=== PATIENT | female | born 1975 | race Caucasian/White ===

== ENCOUNTER → 2018-01-20 | Day surgery (SDC) | payer BC ==
[2018-01-19 10:13] VITALS: BMI 31.2
[~2018-01-20] MED LIST: Bupivacaine/Epinephrine 0.25% 30 ML VIAL ONE; Clindamycin/D5W 600 mg/50 ml Premix Bag ONE; Dexamethasone 20 MG/5 ML VIAL ONE; Fentanyl 100 MCG/2 ML VIAL IV PRN; Fentanyl 100 MCG/2 ML VIAL ONE; Glycopyrrolate 0.2 MG/ML 5 ML SYRINGE ONE; HYDROcodone/Acetaminophen 5/325 mg Tablet PO PRN; Ketorolac Tromethamine 30 MG/ML VIAL ONE; Lidocaine 1% PF 5 ML VIAL ONE; Metoclopramide HCl 10 MG/2 ML VIAL ONE; Midazolam HCl 2 mg/2 ml Vial ONE; Ondansetron PF 4 MG/2 ML Vial IVP PRN; Ondansetron PF 4 MG/2 ML Vial ONE; PHENYLEPHRINE-NS 100 MCG/ML 10 ML SYRINGE ONE; PROPOFOL 200 MG/20 ML VIAL ONE; Promethazine HCl 25 MG/ML VIAL IM PRN; Ropivacaine 0.2% 550 ML 550 ML NERVE BLCK SCH; Ropivacaine 0.2% HCl/PF (40 MG/20 ML VIAL) ONE; Ropivacaine 0.5% HCl/PF (150 MG/30 ML VIAL) ONE; Zolpidem Tartrate 5 MG TAB PO PRN; diphenhydrAMINE 50 MG/ML VIAL ONE; traMADol HCl 50 MG TAB PO PRN
--- NOTE | 2018-01-25 17:34 | OP ---
DATE OF PROCEDURE: 01/20/2018 PREOPERATIVE DIAGNOSES: Left shoulder partial cuff tear, biceps tendon tear, and instability secondary to traumatic fall. POSTOPERATIVE DIAGNOSES: Left shoulder partial cuff tear, biceps tendon tear, and instability secondary to traumatic fall. PROCEDURES PERFORMED: 1. Left shoulder arthroscopy with debridement of labral tear as well as biceps tendon tear as well as partial undersurface rotator cuff tear. 2. Arthroscopic subacromial decompression. 3. Open biceps tenodesis. ESTIMATED BLOOD LOSS: Less than 30 mL. COMPLICATIONS: None. ANESTHESIA: General anesthetic as well as block. IMPLANTS: We used a 7 x 23 mm BioComposite Bio-Tenodesis screw. DISPOSITION: She did go to recovery room in sterile condition. INDICATIONS FOR PROCEDURE: This is a 42-year-old female who fell off a horse a couple of months prior to this surgical date and came in complaining of chronic left shoulder pain. We are unable to make her any better nonoperatively and this time she opted for surgery. DESCRIPTION OF PROCEDURE: After all appropriate consent forms were explained and signed, she was taken back to the operating room at this time and given an anesthetic. Once the level of anesthesia was appropriate, she was rolled on to the right lateral decubitus with all bony prominences were well padded. The axillary roll was placed underneath the right axilla. A bobby bag was inflated to hold her in this position. The shoulder was then taken through full range of motion and then suspended with 10 pounds in standard arthroscopic fashion. The left shoulder and upper extremity were then prepped and draped in standard surgical fashion. Bony anatomical landmarks were drawn out and the subacromial space was infiltrated with Marcaine with epinephrine. Posterior portal was established. Scope was placed into the shoulder joint. Anterior working portal was made using a needle localization technique. Diagnostic arthroscopy commenced in the glenohumeral joint. The articular surfaces of the humeral head and glenoid were in excellent condition. The patient had a partial undersurface tear of the supraspinatus tendon. She also demonstrated an intraarticular tear of the biceps tendon as well as the superior labrum. We then inserted the shaver, debrided all the aforementioned tissues, packed the stable space. Remaining labrum showed that the posterior inferior labrum had a small degenerative type tear. This was also debrided. Otherwise, remaining posterior labrum was in good condition. No loose bodies were noted in the axillary pouch. Again, the articular surfaces were in good condition. We then went ahead and evaluated the cuff and even though she did have this partial thickness tear, there still appeared to be, from this viewpoint, significant rotator cuff tissue that was normal on appearance superior to this. At this time, a needle was used to place the stitch through the biceps tendon and the biceps tendon was cut off at the superior labral insertion. At this point, we repositioned the scope in the subacromial space. Bursa was removed off the underlying cuff and there was a small area in the leading edge of the supraspinatus where the bursa was frayed, but the tissue overall appeared to be healthy and intact. Again, small decompression was performed using the SERFAS and the shaver. At this time, no real cuff repair was deemed necessary. Therefore, the scope was removed. Shoulder was drained. We then made an incision with a 15 blade down to the skin. Bovie was used to coagulate any brisk venous bleeding. Deltoid fascia was incised sharply. Finger dissection was used to split the deltoid fibers in line to get down to the underlying transverse humeral ligament and the biceps tendon. This was opened up. Biceps tendon was pulled down on to the wound. It was then sutured. The intra-articular portion was removed. We then placed our guidewire, drill and placed and fixated the biceps tendon in standard fashion using a 7 x 23 BioComposite Bio-Tenodesis screw. Once this was done, we thoroughly irrigated and dried the wound. We allowed the deltoid to fall upon itself. We then used a running Vicryl to close our deltoid fascia, followed by 2-0 Vicryl and sutures to close the skin. All portal was closed with simple nylon stitch as well. At this time, the patient was awakened and taken to recovery room in stable condition. All counts were correct at the end of case and she received preoperative IV antibiotics. Job ID: [id number]
== END ==
LOC: SDC 06:44
PROVIDERS: ATTEND Orthopaedic Surgery
PROC: 0LS20ZZ Reposition Left Shoulder Tendon, Open Approach (ICD-10-PCS; principal; 2018-01-20)
PROC: 0RBK4ZZ Excision of Left Shoulder Joint, Percutaneous Endoscopic Approach (ICD-10-PCS; principal; 2018-01-20)
DX: S46.012A Strain of muscle(s) and tendon(s) of the rotator cuff of left shoulder, initial encounter (principal); S46.112A Strain of muscle, fascia and tendon of long head of biceps, left arm, initial encounter; M25.312 Other instability, left shoulder; S43.492A Other sprain of left shoulder joint, initial encounter; G25.89 Other specified extrapyramidal and movement disorders; Z88.0 Allergy status to penicillin; V80.010A Animal-rider injured by fall from or being thrown from horse in noncollision accident, initial encounter
CPT/HCPCS: A4306; C1713; J1100; J1200; J1885; J2001; J2250; J2405; J2704; J2765; J2795; J3010; J3490

== ENCOUNTER 2018-04-07 20:52 | Inpatient (IN) | payer BC ==
[2018-04-07 21:15] LABS: #Basophils 0.1 thou/uL (0.0-0.2); #Lymphocytes 3.2 thou/uL (1.20-3.40); #Neutrophils 13.6 thou/uL (1.40-6.50); %Basophils 0.4 % (0.0-1.0); %Eosinophils 0.3 % (0.0-10.0); %Lymphocytes 17.8 % (21.0-51.0); %Monocytes 5.4 % (0.0-10.0); %Neutrophils 76.1 % (42.0-75.0); Hemoglobin 14.2 g/dL (12.0-16.0); Mean Corpuscular HGB CONC 33.5 g/dL (32.0-36.0); Mean Corpuscular Hemoglobin 30.1 pg (27.0-31.0); Mean Corpuscular Volume 89.9 fL (78.0-98.0); Mean Platelet Volume 6.7 fL (7.4-10.4); Platelet Count 354 thou/uL (130-400); White Blood Cell (WBC) Count 17.9 thou/uL (4.8-10.8)
--- NOTE | 2018-04-07 21:16 | RAD ---
AP VIEW CHEST: 04/07/18 HISTORY: Ejection from a horse. Struck metal pole with head. Loss of consciousness. AP view chest demonstrates the lungs to be well aerated. No evidence of active intrathoracic disease seen. No evidence of effusions, pneumonia or pneumothorax seen. IMPRESSION: Unremarkable AP view chest. POS: [facility]
--- NOTE | 2018-04-07 21:17 | RAD ---
AP VIEW PELVIS: 04/07/18 HISTORY: Ejection from horse. Trauma. Pain. AP view pelvis obtained. The pelvis is unremarkable. No evidence of pelvic fractures, subluxations or bony lesions seen. IMPRESSION: Unremarkable AP view pelvis. POS: [facility]
--- NOTE | 2018-04-07 21:19 | RAD ---
TWO VIEWS RIGHT FEMUR: 04/07/18 HISTORY: Ejection from horse with right thigh pain. AP and lateral views right femur obtained. Two views right femur demonstrate no evidence of right fem oral fractures, subluxations or bony lesions. IMPRESSION: Normal to views right femur. POS: [facility]
[2018-04-07 21:21] LABS: BHCG - Serum Negative (NEGATIVE); Pregs Control Background? CLEAR/WHITE (CLR/WHITE); Pregs Control Bar Appear? YES (CONTROL BAR)
[2018-04-07] MEDS ORDERED: CEFAZOLIN 1 GM VIAL ONE (21:26)
[2018-04-07] MEDS ORDERED: Fentanyl 100 MCG/2 ML VIAL ONE (21:26)
[2018-04-07] MEDS ORDERED: Adacel (T-DAP) 0.5 ML SYRINGE ONE (21:26)
[2018-04-07 21:29] LABS: ALT (SGPT) 14 U/L (8-55); AST (SGOT) 23 U/L (5-34); Albumin 4.1 g/dL (3.5-5.0); Alkaline Phosphatase 76 U/L (40-150); Anion Gap 16 mmol/L (10-20); BUN (Urea Nitrogen) 8 mg/dL (7.0-18.7); Bilirubin, Total 0.7 mg/dL (0.2-1.2); Calc. Creatinine Clearance 0 mL/min (70-130); Calcium 9.5 mg/dL (7.8-10.44); Carbon Dioxide 17 mmol/L (22-29); Chloride 107 mmol/L (98-107); Estimated GFR-MDRD 73; Globulin 3.1 g/dL (2.4-3.5); Glucose 142 mg/dL (70-105); Lipase 9 U/L (8-78); Potassium 3.3 mmol/L (3.5-5.1); Protein, Total 7.2 g/dL (6.0-8.3); Sodium 137 mmol/L (136-145)
--- NOTE | 2018-04-07 21:35 | CT ---
CT BRAIN 04/07/18 HISTORY: Trauma, struck head on metal pole. Noncontrast enhanced CT images of the brain obtained. Brain and bone windows obtained. There is an ac gonzales fracture involving the right orbital roof as well as the right lateral orbital wall and right zyg omatic arch. The fracture extends inferiorly to involve the anterior and posterolateral wall of the r ight maxillary sinus. Acute blood is seen in the right maxillary sinus as well. The brain itself demonstrates no evidence of significant hemorrhage. Although it is not definitively visualized at this time, I am concerned about trauma and edema developing in the right frontal lobe, especially on the inferior aspect adjacent to the fractured orbital roof. No significant evidence of acute midline shift or hemorrhage seen at this time. IMPRESSION: Extensive right orbital roof, lateral orbital wall, and right maxillary sinus fractures. POS: [facility]
[2018-04-07] MEDS ORDERED: Metoclopramide HCl 10 MG/2 ML VIAL ONE (21:39)
--- NOTE | 2018-04-07 21:39 | CT ---
CT FACIAL BONES: 04/07/18 HISTORY: Trauma, hit head on metal pole while being thrown from a horse. Axial images are obtained with coronal and sagittal reconstructions. CT images demonstrate areas of cortical disruption and displacement involving the right orbital roof involving the right frontal bone. The fracture extends posteriorly into the medial posterior aspect o f the orbital wall on the right. There is a definite acute fracture also involving the right lateral orbital wall. As mentioned on the CT brain, there is also a fracture involving the right anterior and posterolateral wall of the right maxillary sinus. There is also areas of lucency in the right mid an d posterior aspect of the zygomatic arch. A small amount of gas is seen in the right anterior aspect of the subdural or subarachnoid space seen on axial image #59 just posterior to the right posterior portion of the frontal sinus. The mandible is unremarkable. IMPRESSION: Extensive facial fracture as described above. POS: [facility]
--- NOTE | 2018-04-07 21:43 | CT ---
CT CERVICAL SPINE 04/07/18 HISTORY: Level II trauma. Fall from horse. CT cervical spine. Axial images are obtained with coronal and sagittal reconstructions. CT images cervical spine demonstrate no evidence of acute cervical spine fractures. Cervical spinal a lignment is within normal limits. Vertebral bodies and facets are unremarkable. The central canal is patent. No significant evidence of neural foraminal narrowing seen. IMPRESSION: Unremarkable CT cervical spine. POS: [facility]
[2018-04-07] MEDS ORDERED: Bupivacaine 0.5% 10 ML VIAL ONE (22:10)
[2018-04-07] MEDS ORDERED: Potassium Chloride 40 MEQ in Sodium Chloride 0.9% 500 ML IVPB ONE (23:00)
[2018-04-08] MEDS ORDERED: Dextrose 50% Abboject 50 ML SYRINGE SLOW IVP PRN (00:07)
[2018-04-08] MEDS ORDERED: Ondansetron PF 4 MG/2 ML Vial IVP PRN (00:07)
[2018-04-08] MEDS ORDERED: Ondansetron ODT 4 MG TAB PO PRN (00:07)
[2018-04-08] MEDS ORDERED: Dextrose 5% in Water 1,000 ML IV PRN (00:07)
[2018-04-08] MEDS ORDERED: Morphine 4 MG/ML VIAL SLOW IVP PRN (00:07)
[2018-04-08] MEDS ORDERED: Promethazine HCl 25 MG/ML VIAL IM/IV PRN (00:07)
[2018-04-08] MEDS: Acetaminophen 1,000 MG in Premix Bag 1 BAG IVPB SCH ×3 (00:12→13:14)
[2018-04-08] MEDS: Lactated Ringer's 1,000 ML IV SCH ×3 (00:22→16:52)
--- NOTE | 2018-04-08 00:39 | HP ---
Level 2 trauma activation. SUBJECTIVE: A 42-year-old woman ejected from horse at high rate of speed, hitting a metal pipe, and striking her head. No loss of consciousness according to the patient and bystanders. The patient with immediate nausea and vomiting. The patient was evaluated in the emergency room and was found to have right maxillary facial fractures and laceration to the right forehead, eyelid. Wound was closed with sutures in the ER. The patient was given tetanus and Ancef 1 g IV. The patient also given Zofran 8 mg by EMS for nausea, vomiting, and Reglan 10 mg in the emergency room. The patient also with right pneumocephalus. Neuro and oral maxillary facial surgery have both been consulted. PAST MEDICAL HISTORY: Denies any medical history. PAST SURGICAL HISTORY: , right shoulder surgery, and tubal ligation. SOCIAL HISTORY: Denies any alcohol use. Denies drug use. Denies smoking history. ALLERGIES: PENICILLIN. OBJECTIVE: VITAL SIGNS: Blood pressure 127/77, pulse 71, respirations 16, SpO2 100% on room air, and temperature 98.6. GENERAL: The patient in moderate distress. Reports pain 6/10. The patient in the process of getting right eyebrow laceration repair. HEENT: Pupils are equal and reactive bilateral, 3 mm, the patient with 3 cm laceration to the right eyebrow, sutures in place, contusion, ecchymosis, right eye and right side of nose. Normal dentition. Trachea midline. No cervical tenderness. C-spine cleared in the emergency room. RESPIRATORY: No respiratory distress. Bilateral breath sounds clear. No wheezing, rales, or rhonchi. CARDIOVASCULAR: Regular rate and rhythm. No murmurs. ABDOMEN: Soft, nontender, and nondistended. Active bowel sounds. BACK: Normal inspection. No tenderness. EXTREMITIES: Pelvis is stable. Right lateral thigh with a large abrasion, right forearm abrasion, and right ankle abrasion. NEURO: The patient is alert, oriented to person, place, time, and event, GCS is 15. Speech is normal. There are no focal motor deficits or sensory deficits. LABORATORY DATA: WBC 17.9, RBC 4.7, her hemoglobin 14.2, hematocrit 42.2, and platelets 353. Sodium 137, potassium 3.3, chloride 107, carbon dioxide 17, anion gap 16, BUN 8, creatinine 0.86, estimated GFR 73, glucose 142, calcium 9.5, total bilirubin 0.7, AST 23, ALT 14, alkaline phos 76, and lipase 9. DIAGNOSTICS STUDIES: 1. Cervical spine CT, unremarkable. 2. Brain CT, extensive right orbital roof, lateral orbital wall, and right maxillary sinus fractures. 3. No significant evidence of acute midline shift or hemorrhage seen at this time. Acute blood seen in the right maxillary sinus. 4. Pelvis x-ray, unremarkable. Chest x-ray, unremarkable. 5. Femur x-ray normal view right femur. 6. Facial bone CT, extensive facial fracture, areas of cortical disruption and displacement involving the right orbital roof, involving the right frontal bone. The fracture extends posteriorly into the medial posterior aspect of the orbital wall on the right. Also, a definite acute fracture involving the right lateral orbital wall. Also, a fracture involving the right anterior and posterolateral wall of the right maxillary sinus. There are also areas of lucency in the right mid and posterior aspect of the zygomatic arch. There is a small amount of gas seen in the right anterior aspect of the subdural or subarachnoid space posterior to the right portion of the frontal sinus. The mandible is unremarkable. IMPRESSION: 1. Multiple facial fractures. 2. Pneumocephalus. 3. Right maxillary sinus fracture. 4. Laceration to right eyebrow. 5. Acute traumatic pain. 6. Concussion. 7. Hypokalemia. PLAN: We will admit patient to the [facility]. q.2 hour neuro checks. Neurology and OMFS had been consulted. We will get a repeat CT in the morning. We will manage patient's pain. Keep patient n.p.o. until OMFS determines if the patient needs surgical intervention. Replace the patient's electrolytes. The patient will be discussed after this dictation with the attending trauma surgeon. Job ID: [id number] [facility]
--- NOTE | 2018-04-08 01:38 | CON ---
DATE OF CONSULTATION: 04/07/2018 This is a 30-minute initial patient evaluation, of which greater than 50% of the exam was spent counseling and coordinating the patient's care. Remainder of the exam was spent in review of the patient's medical records and review of appropriate imaging studies. CHIEF COMPLAINT: Status post fall from a horse with right frontal skull fracture and pneumocephalus. HISTORY OF PRESENT ILLNESS: Ms. Wadsworth is a pleasant 42-year-old female who was riding her horse earlier today. Apparently, she was attempting to began a barrel racing with a horse when it turned sideways throwing the right side of her face into a metal gate. She has headache, but no neck pain. She had significant right eye pain as this took the brunt of the injury. She does also have some abrasions to the right thigh and has some pain there, but otherwise has no back pain. She has been nauseous and vomiting due to pain. Otherwise, she is healthy and is not on blood thinners. Review of the patient's head CT notes right frontal region skull fracture with slight amount of pneumocephalus, but no indication of intracranial hemorrhage. She has significant fracture to the right orbit and sinuses from her facial trauma. Her cervical spine CT is negative for fracture. The family was updated at bedside. PHYSICAL EXAMINATION: The patient appears to be awake, but prefers to keep her eyes closed secondary to pain and again injury. There is significant ecchymosis and obvious bloody drainage from the right eye and is extremely swollen. She, however, is able to open the left eye, pupil is round and reactive to light. GCS is 15. She has good strength in all the extremities, though she very slowly moved the right leg secondary to the right lateral thigh abrasions. She is obviously nauseous throughout the exam and states she is going to throw up several times, although I did not witness this. IMPRESSION/DIAGNOSES: 1. Status post fall from horse with facial trauma including right orbital fracture. 2. Small right frontal skull fracture with slight amount of pneumocephalus. PLAN: I have discussed the patient's case and imaging with Dr. Oropeza. At this time, the patient will be admitted to the Trauma Service and we will defer to OMFS the regarding repair of the patient's facial fractures and orbital fracture. In regard to the patient's head CT with skull fracture with pneumocephalus, we planned to repeat noncontrast head CT in the morning. The patient will be admitted to the ICU with q.2 hour neuro-checks. Apparently, the patient has a component of concussion and we will control her pain as well as nausea and vomiting. In regard to Neurosurgery, she does not require surgery at this time and again, hopefully we can just simply monitor the skull fracture. Please call with any changes in the patient's neurologic status. Job ID: [id number]
[2018-04-08 02:12] VITALS: BMI 31.7
[2018-04-08] MEDS: Morphine 4 MG/ML VIAL SLOW IVP PRN ×2 (03:46→07:28)
[2018-04-08 06:00] LABS: #Lymphocytes 1.4 thou/uL (1.20-3.40); #Monocytes 0.9 thou/uL (0.11-0.59); #Neutrophils 12.6 thou/uL (1.40-6.50); %Eosinophils 0.1 % (0.0-10.0); %Lymphocytes 9.1 % (21.0-51.0); %Monocytes 5.9 % (0.0-10.0); %Neutrophils 84.9 % (42.0-75.0); Hemoglobin 12.4 g/dL (12.0-16.0); Mean Corpuscular HGB CONC 33.6 g/dL (32.0-36.0); Mean Corpuscular Hemoglobin 30.5 pg (27.0-31.0); Mean Corpuscular Volume 90.8 fL (78.0-98.0); Mean Platelet Volume 6.9 fL (7.4-10.4); Platelet Count 302 thou/uL (130-400); RBC Distribution Width 12.1 % (11.5-14.5); Red Blood Cell (RBC) Count 4.06 mill/uL (4.20-5.40); White Blood Cell (WBC) Count 14.8 thou/uL (4.8-10.8)
[2018-04-08 06:17] LABS: ALT (SGPT) 12 U/L (8-55); AST (SGOT) 18 U/L (5-34); Albumin 3.6 g/dL (3.5-5.0); Alkaline Phosphatase 68 U/L (40-150); Anion Gap 12 mmol/L (10-20); BUN (Urea Nitrogen) 8 mg/dL (7.0-18.7); Bilirubin, Total 0.9 mg/dL (0.2-1.2); Calc. Creatinine Clearance 115 mL/min (70-130); Calcium 8.9 mg/dL (7.8-10.44); Carbon Dioxide 19 mmol/L (22-29); Chloride 109 mmol/L (98-107); Estimated GFR-MDRD 85; Globulin 2.8 g/dL (2.4-3.5); Glucose 122 mg/dL (70-105); Magnesium 1.7 mg/dL (1.6-2.6); Phosphorus 3.5 mg/dL (2.3-4.7); Potassium 4.4 mmol/L (3.5-5.1); Protein, Total 6.4 g/dL (6.0-8.3); Sodium 136 mmol/L (136-145)
[2018-04-08] MEDS ORDERED: Famotidine/PF 20 mg/2ml Vial SLOW IVP SCH (09:00)
--- NOTE | 2018-04-08 09:09 | CT ---
PRELIMINARY REPORT/[facility]/EMERGENTY AFTER-HOURS PROCEDURE CT Head Without Contrast EXAM DATE/TIME: 04/08/2018 4:12 AM CLINICAL HISTORY: 42 years old, female; Condition or disease; Other: Skull fracture; Patient HX: Follow up, pneumocepha dylan, right frontal skull fracture TECHNIQUE: Axial computed tomography images of the head/brain without contrast. COMPARISON: CT Brain WO Con 04/07/2018 9:13 PM FINDINGS: Brain: Redemonstration of few tiny intracranial air pockets. Otherwise no evidence of hemorrhage, mas s effect, or edema. Ventricles: No acute findings. No ventriculomegaly. Bones/joints: Redemonstration of multiple right frontal, orbital and maxilla zygomatic facial fractur es. Sinuses: Right maxillary sinus partial opacification/hematoma. Mastoid air cells: No acute findings. No mastoid effusion. Soft tissues: Marked right frontal, periorbital and facial soft tissue swelling and tiny air pockets. IMPRESSION: Redemonstration of multiple fractures and tiny pneumocephalus. Otherwise no acute intracranial abnorm ality. Thank you for allowing us to participate in the care of your patient. Dictated and Authenticated by: Tim Em MD 04/08/2018 5:31 AM Central Time ([place] & [place]) FINAL REPORT EMERGENCY AFTER HOURS CT OF THE BRAIN WITHOUT CONTRAST: Date: 04/08/18 COMPARISON: 04/07/18. FINDINGS/IMPRESSION: I agree with the findings and impression given in the preliminary report per [facility] physician. There is a tiny amount of a pneumocephalus and extensive right facial fractures. No change has occurred cady red to the prior CT of the brain. POS: [facility]
[2018-04-08] MEDS ORDERED: Chloraseptic Spray 180 ml Bottle PO PRN (10:33)
--- NOTE | 2018-04-08 10:33 | PRG ---
DATE OF SERVICE: 04/08/2018 SUBJECTIVE: Ms. Wadsworth is a 42-year-old woman seen by my team. She was thrown off a horse, who sustained right frontal and skull base fractures. She has had no issues or CSF leak. She has trace pneumocephalus both on her initial and repeat head CT with no blossoming of hemorrhagic products. From a neurosurgical standpoint, I would be fine with dismissal. We will arrange followup in my clinic as far as Oral Maxillofacial Surgery and Ophthalmology evaluation. I would defer to those teams. Job ID: [id number]
[2018-04-08] MEDS ORDERED: Dexamethasone 4 MG TAB PO SCH (10:45)
[2018-04-08] MEDS: Acetaminophen 500 MG TAB PO SCH ×3 (14:38→23:27)
[2018-04-08] MEDS: Ibuprofen 800 MG TAB PO SCH ×2 (14:38→16:49)
[2018-04-08] MEDS: traMADol HCl 50 MG TAB PO SCH ×3 (14:38→23:28)
--- NOTE | 2018-04-08 16:28 | PRG ---
DATE OF SERVICE: 04/08/2018 SUBJECTIVE: This is a 42-year-old woman, who was ejected from a horse at high rate of speed, hitting her head on a metal pipe. No loss of consciousness according to the patient and bystanders. The patient was evaluated to have multiple facial fractures and orbital fractures. Post injury day #2. The patient is awake, alert, in no distress. GCS 15. The patient reports no overnight events and pain is well controlled. Reports a mild sore throat. The patient had no neurologic changes overnight. OBJECTIVE: VITAL SIGNS: Temperature 98.8, blood pressure 111/71, pulse 84, respirations 16, and 94% on room air. GENERAL: The patient is awake, alert, and in no distress. Family at bedside. HEENT: Right eye with ecchymosis and severe swelling and swelling to right side of face. Sutures to right eyebrow in place with bandage. NECK: Trachea midline. RESPIRATORY: No respiratory distress. Bilateral breath sounds clear. CARDIOVASCULAR: Regular rate and rhythm. ABDOMEN: Soft, nontender, and nondistended. EXTREMITIES: The patient moves all extremities. No pedal edema. The patient with abrasion to right lateral thigh. NEUROLOGIC: The patient is awake, alert. GCS 15. No focal motor deficits or sensory deficits. LABORATORY DATA: WBC 14.8, RBC 4.06, hemoglobin 12.4, hematocrit 36.9, and platelets 302. Sodium 136, potassium 4.4, chloride 109, CO2 of 19, creatinine 0.75, estimated GFR 85, BUN 8, glucose 122, calcium 8.9, and phosphorus 3.5. Brain CT, tiny amount of pneumocephalus and extensive right facial fractures. No change has occurred compared to the prior CT of the brain. ASSESSMENT: 1. Multiple facial fractures. 2. Right maxillary sinus fracture. 3. Pneumocephalus. 4. Right orbital roof fracture, lateral orbital wall fracture. 5. Laceration to right eyebrow. 6. Acute traumatic pain. PLAN: We will move the patient to surgical floor as she has been stable overnight with no neurologic changes and no change in her brain CT. Neuro has signed off on the patient once the patient to follow up with them in their clinic in 4 weeks with a followup CT head. Pending evaluation by Oromaxillary Facial Surgery. Also, we will need to consult Ophthalmology, but not at this time as the patient still has severe swelling. We will place the patient on Decadron for severe swelling. We will place the patient on a clear liquid diet. Silvadene cream for the patient's right thigh abrasions/road rash. Also, we will order Chloraseptic spray as the patient reported some sore throat. We will have Physical Therapy to work with patient. The patient was examined with Dr. Leo. Job ID: [id number] [facility]
[2018-04-08] MEDS: Silver Sulfadiazine 1% Cream 50 GM JAR TOP SCH (20:45)
[2018-04-08] MEDS: Dexamethasone 4 MG TAB PO SCH (20:47)
[2018-04-09] MEDS: Ibuprofen 800 MG TAB PO SCH ×2 (00:07→09:32)
[2018-04-09] MEDS: Lactated Ringer's 1,000 ML IV SCH (01:20)
[2018-04-09] MEDS: traMADol HCl 50 MG TAB PO SCH ×2 (05:08→10:32)
[2018-04-09] MEDS: Acetaminophen 500 MG TAB PO SCH ×2 (05:08→10:34)
--- NOTE | 2018-04-09 08:06 | HP ---
ADDENDUM: This is an addendum to the H and P dictated by Alma Rosa Estrada, Trauma Nurse Practitioner. I have confirmed the details of her H and P with the patient. In short, Ms. Wadsworth is a 42-year-old healthy woman who was thrown from her horse and hit her face on a metal pole. Other than the facial injuries, she had some scrapes and bruising to her right leg, is otherwise pain-free. She denies any loss of consciousness at the time of the trauma and states that her vision in her injured eye and her extraocular movements were normal following the injury, although she can no longer open that eye at this point due to swelling. She does not have any significant past medical history. She has had , tubal ligation, and shoulder surgery. Does not smoke, drink, or use illicit drugs. She does not take any medications, but reports an allergy to penicillin. Complete head-to-toe examination was performed personally. The patient has a laceration near her right eyebrow which is sutured shut. This appears to be well approximated. She has extensive ecchymosis and swelling of her right eye and cheek and forehead consistent with the known fractures in this area. She has no malocclusion or instability of her jaw. Her neck is nontender without step-offs or midline tenderness and she has full range of motion. Heart, lungs, abdomen, and pelvic exam are normal and she has some abrasions to her right lateral thigh and her osuna, but no full-thickness skin injuries. No hematoma and no instability. Neurologically intact. Labs and CTs are reviewed. She has extensive facial fractures including the right orbital roof and posteriorly into the orbital wall on the right. The right lateral orbital wall is also fractured as are the right anterior and posterior lateral blair of the right maxillary sinus. The mandible appears unfractured. She has a frontal skull fracture extending from the orbital roof and a small amount of pneumocephalus in this area. Repeat CT this morning was essentially unchanged. No delayed bleeding into the brain. ASSESSMENT: Extensive facial fractures. OMFS has been consulted and we will defer management to them. She does have a frontal skull fracture and pneumocephalus, but this is stable and Neurosurgery has stated that she is acceptable for discharge home from their standpoint with outpatient followup. No other injuries identified on tertiary exam this morning. Job ID: [id number]
--- NOTE | 2018-04-09 08:36 | CON ---
DATE OF CONSULTATION: 04/08/2018 CONSULTING PHYSICIAN: Dr. Silva with the Trauma Surgery Service. HISTORY OF PRESENT ILLNESS: This is a 42-year-old female, status post fall from horse at high speed. The patient reported that she struck her face on a metal fence post. Denied loss of consciousness. She was evaluated in the emergency room and was found to have basilar skull fractures in addition to facial fractures. I was consulted for evaluation and management of the facial fractures. PAST MEDICAL HISTORY: Negative. PAST SURGICAL HISTORY: , right shoulder surgery, and bilateral tubal ligation. HOME MEDICATIONS: None. ALLERGIES: PENICILLIN. SOCIAL HISTORY: Denies smoking, alcohol, or drugs. REVIEW OF SYSTEMS: Reports swelling and discomfort to the right periorbital region. Pain on occlusion. Numbness to the distribution of cranial nerve V2 on the right. PHYSICAL EXAMINATION: VITAL SIGNS: Blood pressure 137/81, heart rate 67, respiratory rate 16, 97% oxygen on room air, and temperature 98.4 Fahrenheit. GENERAL: Alert and oriented x3. No apparent distress. HEENT: The patient is initially noted to have significant right periorbital edema and ecchymosis with some soft tissue wounds involving the forehead and right upper eyelid, which was previously being closed. No other external soft tissue wounds noted throughout the scalp, face, or neck. No external signs of trauma involving the nose or ears bilaterally. Intraorally occlusion is well intercuspatated bilaterally without any signs of fractures involving the mandible or maxillary arches. Oral opening is within normal limits. Floor of mouth is soft. Oropharynx within normal limits. On eye exam, the patient is unable to open the right eyelid. On manual opening of the right eyelid, the patient is noted to have extraocular movements intact. Pupils are equally round and reactive to light bilaterally. Visual acuity is grossly intact bilaterally. There are no signs of diplopia currently. NECK: There are no external signs of trauma throughout the neck. Trachea is midline. No soft tissue wounds. No masses. LABORATORY DATA: On the CBC, the patient had a white blood cell count of 14.8, hemoglobin of 12.4, and platelets of 302. IMAGING DATA: CT scan of the face shows a right zygomaticomaxillary complex fracture with involvement of the lateral orbital wall and orbital floor on the right. The ZMC segment is kicked in medially, but displacement seems to be relatively monitored. On additional note, the patient does have fractures involving the orbital roof with extension into the cranium and fractures involving the frontal bone as well. ASSESSMENT: A 42-year-old female, status post fall from horse with basilar skull fractures in addition to mildly displaced right zygomaticomaxillary complex fracture with involvement of the lateral orbital wall and orbital floor. PLAN: 1. The patient can be discharged home from my standpoint when ready from Trauma Surgery standpoint. The patient should follow up in my clinic in approximately 1 week for reevaluation, status post resolution of her initial post-traumatic swelling and edema. 2. Recommend 1-week coverage of p.o. antibiotic course. 3. Sinus precautions reviewed with the patient to include no nose blowing in avoidance of coughing or sneezing. Saline nasal spray p.r.n. for stuffiness, congestion. 4. Recommended elevation of the head of the bed and increased activity for assistance with mobilization, resolution of the post-traumatic edema. Job ID: [id number]
[2018-04-09] MEDS ORDERED: Famotidine/PF 20 mg/2ml Vial SLOW IVP SCH (09:00)
[2018-04-09] MEDS: Dexamethasone 4 MG TAB PO SCH (09:31)
[2018-04-09] MEDS: Silver Sulfadiazine 1% Cream 50 GM JAR TOP SCH (09:33)
[2018-04-09] MEDS ORDERED: Clindamycin 150 MG CAP PO SCH (12:00)
[2018-04-09 15:10] VITALS: BP 135/85; TEMP 98.6
--- NOTE | 2018-04-09 15:36 | DIS ---
DATE OF ADMISSION: 04/07/2018 DATE OF DISCHARGE: 04/09/2018 ADMISSION DIAGNOSES: 1. Status post ejection from horse. 2. Pneumocephalus. 3. Right orbital roof and lateral wall fracture. 4. Right maxillary sinus fracture. 5. Right zygomatic arch fracture. 6. Laceration to right eyebrow. 7. Right thigh abrasion. DISCHARGE DIAGNOSES: 1. Status post ejection from horse. 2. Pneumocephalus. 3. Right orbital roof and lateral wall fracture. 4. Right maxillary sinus fracture. 5. Right zygomatic arch fracture. 6. Laceration to right eyebrow. 7. Right eye abrasion. CONSULTING PHYSICIANS: Dr. Oropeza with Neurosurgery, Dr. Hirsch with [facility], and Dr. Almeida with Ophthalmology. PROCEDURES: Right eyebrow laceration repair completed in the emergency department. HOSPITAL COURSE: Ms. Wadsworth is a 42-year-old female patient, who presented to the emergency department after she was ejected from her horse and hit the right side of her face on a pole. She had no loss of consciousness and does not use anticoagulation. She received a CT of the head, C-spine, and facial bones as well as an x-ray of the femur, chest, and pelvis. Her injuries included a pneumocephalus, right orbital roof and lateral wall fractures, right maxillary sinus fracture, right zygomatic arch fracture, laceration to right eyebrow, and right thigh abrasion. She was admitted to the ICU initially for consecutive neurologic exams. The next morning, she received a repeat head CT which was negative for intracranial hemorrhage, but demonstrated a consistent pneumocephalus. Dr. Oropeza examined the patient and reported he was not concerned for hemorrhage or CSF leak. He signed off with recommendations to follow up in 4 weeks with a repeat head CT in clinic. The patient was also seen by [facility], Dr. Hirsch, who recommended the patient can be discharged and follow up with him in 1 week in his clinic for operative planning. He recommended discharge with p.o. antibiotics and nasal precautions as well. Dr. Almeida with Ophthalmology was also contacted for evaluation of the right eye on hospital day 2 after swelling was significantly reduced with Decadron and the patient was able to open her eye. Dr. Almeida asked that the patient come to see him in clinic on the day of discharge for further evaluation. On day 2, she was moved to the floor and given a clear liquid diet and oral pain medications, which she tolerated well. By time of discharge, the patient was tolerating a regular diet, urinating without difficulties. Mentation was at baseline with a GCS of 15 with no focal neurological deficits. She was ambulating with assistance. She was instructed to visit Dr. Almeida in his office at time of discharge and to follow up with Dr. Hirsch in 1 week. DISCHARGE DISPOSITION: Home. DISCHARGE CONDITION: Satisfactory. PHYSICAL EXAMINATION: VITAL SIGNS: Temperature 98.3, pulse 83, respirations 16, oxygen saturation 96% on room air, blood pressure 135/86. GENERAL: Awake and alert appearing female, sitting up in bed. NEURO: GCS is 15. Alert and oriented x3. Gross motor and sensation intact. Pupils equal, round, reactive to light. HEAD, EYES, EARS, NOSE, THROAT: Right periorbital swelling and bruising markedly improved. Minimal bruising to left lower eye. No signs of entrapment. Pupils equal, round, reactive to light. 3 cm laceration to right eyebrow with sutures in place. Wound is clean, dry, and intact with no signs of infection. NECK: Unremarkable. PULMONARY: No signs of acute distress. Equal chest rise and fall. Lung parks clear bilaterally. HEART: Regular rate and rhythm. No murmurs, gallops, or rubs. GI: Abdomen is soft, nontender, nondistended with positive bowel sounds. EXTREMITIES: Gross motor and sensation intact. 2+ pulses in all extremities. No swelling noted. DISCHARGE INSTRUCTIONS: The patient was discharged with a prescription for tramadol x5 days as well as clindamycin q.8 hours x5 days due to open facial fractures. She is to participate in activity as tolerated with nasal precautions. She should refrain from blowing her nose. Should keep the head of her bed elevated, avoid coughing and sneezing and can use saline nasal spray as needed for congestion. DISCHARGE MEDICATIONS: Include: 1. Clindamycin 500 mg p.o. q.8 hours x7 days with no refills. 2. Tylenol 1 g p.o. q.6 hours. 3. Ibuprofen 100 mg p.o. q.8 hours. 4. Tramadol 100 mg p.o. q.6 hours p.r.n. for moderate to severe pain. FOLLOWUP APPOINTMENTS: The patient is to follow up with her primary care provider within 7 to 10 days. She is to see Dr. David Hirsch with OMFS within 7 days. Also followup is needed with Dr. Terence Oropeza, Neurosurgery in 4 weeks with a repeat head CT before followup. This is merely a summary of the patient's hospitalization. For full details, please see her medical record in its entirety. Job ID: [id number]
== END 2018-04-09 14:15 | disposition home or self-care (01) | DRG 565 ==
LOC: ERS 20:52 → IMCU/EMU 22:35 → SURG A 04-08 14:11
PROVIDERS: ADMIT Surgery; ATTEND Surgery
PROC: 0HQ1XZZ Repair Face Skin, External Approach (ICD-10-PCS; principal; 2018-04-07)
DX: S02.81XA Fracture of other specified skull and facial bones, right side, initial encounter for closed fracture (principal); S02.40CA Maxillary fracture, right side, initial encounter for closed fracture; S06.0X9A Concussion with loss of consciousness of unspecified duration, initial encounter; S02.40EA Zygomatic fracture, right side, initial encounter for closed fracture; E87.6 Hypokalemia; G93.89 Other specified disorders of brain; S70.311A Abrasion, right thigh, initial encounter; S01.111A Laceration without foreign body of right eyelid and periocular area, initial encounter; V80.010A Animal-rider injured by fall from or being thrown from horse in noncollision accident, initial encounter; Y93.52 Activity, horseback riding; Y92.89 Other specified places as the place of occurrence of the external cause; Z88.0 Allergy status to penicillin
CPT/HCPCS: 12013; 36415; 70450; 70486; 71045; 72125; 72170; 80053; 83690; 83735; 84100; 84703; 85025; 86850; 86900; 86901; 90471; 90715; 96365; 96375; G0390; J0131; J0690; J2270; J2765; J3010; J3480; J3490; J7050; J8540; S0028

== ENCOUNTER 2018-05-03 12:35 | Outpatient (CLI) | payer BC ==
--- NOTE | 2018-05-03 14:06 | CT ---
CT BRAIN WITHOUT CONTRAST: HISTORY: Skull fracture, S02.91XA. COMPARISON: CT brain 04/08/2018. FINDINGS: No acute hemorrhage or infarct. No midline shift or mass effect. Ventricular size and extraaxial CS F spaces are normal. The right orbital floor fracture is not well seen. The lateral orbital wall fracture is similar. Fr acture of the right orbital roof has evidence of healing. Zygoma fracture has evidence of healing. No acute new superimposed fracture. No extradural fluid collection or intradural fluid collection. IMPRESSION: No acute intracranial abnormality. Healing facial fractures. POS: [facility]
== END 2018-05-03 12:36 | disposition home or self-care (01) ==
LOC: TBSIIMAG 12:35
PROVIDERS: ATTEND Surgery
DX: S02.0XXA Fracture of vault of skull, initial encounter for closed fracture (principal); S02.92XD Unspecified fracture of facial bones, subsequent encounter for fracture with routine healing
CPT/HCPCS: 70450

== ENCOUNTER 2020-07-23 17:46 | Emergency (ER) | payer BC ==
[~2020-07-23 17:46] MED LIST changes: -Bupivacaine/Epinephrine 0.25% 30 ML VIAL ONE; -Clindamycin/D5W 600 mg/50 ml Premix Bag ONE; -Dexamethasone 20 MG/5 ML VIAL ONE; -Fentanyl 100 MCG/2 ML VIAL IV PRN; -Fentanyl 100 MCG/2 ML VIAL ONE; -Glycopyrrolate 0.2 MG/ML 5 ML SYRINGE ONE; -HYDROcodone/Acetaminophen 5/325 mg Tablet PO PRN; +Iopamidol-370 76% 500 ML 1 ML ONE; -Ketorolac Tromethamine 30 MG/ML VIAL ONE; -Lidocaine 1% PF 5 ML VIAL ONE; -Metoclopramide HCl 10 MG/2 ML VIAL ONE; -Midazolam HCl 2 mg/2 ml Vial ONE; -Ondansetron PF 4 MG/2 ML Vial IVP PRN; -Ondansetron PF 4 MG/2 ML Vial ONE; -PHENYLEPHRINE-NS 100 MCG/ML 10 ML SYRINGE ONE; -PROPOFOL 200 MG/20 ML VIAL ONE; -Promethazine HCl 25 MG/ML VIAL IM PRN; -Ropivacaine 0.2% 550 ML 550 ML NERVE BLCK SCH; -Ropivacaine 0.2% HCl/PF (40 MG/20 ML VIAL) ONE; -Ropivacaine 0.5% HCl/PF (150 MG/30 ML VIAL) ONE; -Zolpidem Tartrate 5 MG TAB PO PRN; -diphenhydrAMINE 50 MG/ML VIAL ONE; -traMADol HCl 50 MG TAB PO PRN
[2020-07-23 18:33] LABS: Bilirubin Negative (Negative); Blood, Urine Negative (Negative); Clarity Clear (Clear); Glucose, Urine (Dipstick) Normal (Negative); Ketone, Urine Negative (Negative); Leukocyte Negative Leu/uL (Negative); Nitrite Negative (Negative); Protein, Urine (Dipstick) Negative (Neg-Trace); Specific Gravity, Urine 1.015 (1.002-1.036); Urobilinogen Normal mg/dL (Less than 2)
[2020-07-23 18:34] LABS: Pregnancy Test - Urine (BHCG) Negative (Negative); Pregu Control Background? CLEAR/WHITE (CLR/WHITE); Pregu Control Bar Appear? YES (CONTROL BAR); Specific Gravity 1.015 (1.002-1.036)
[2020-07-23 18:42] LABS: #Basophils 0.1 thou/uL (0.0-0.2); #Eosinphils 0.1 thou/uL (0.0-0.7); #Lymphocytes 3.6 thou/uL (1.20-3.40); #Monocytes 1.1 thou/uL (0.11-0.59); #Neutrophils 6.2 thou/uL (1.40-6.50); %Basophils 0.8 % (0.0-1.0); %Eosinophils 0.7 % (0.0-10.0); %Lymphocytes 32.3 % (21.0-51.0); %Monocytes 10.3 % (0.0-10.0); %Neutrophils 55.9 % (42.0-75.0); Hemoglobin 14.3 g/dL (12.0-16.0); Mean Corpuscular HGB CONC 35.3 g/dL (32.0-36.0); Mean Corpuscular Hemoglobin 31.5 pg (27.0-31.0); Mean Corpuscular Volume 89.3 fL (78.0-98.0); Mean Platelet Volume 6.8 fL (7.4-10.4); Platelet Count 320 thou/uL (130-400); RBC Distribution Width 11.7 % (11.5-14.5); Red Blood Cell (RBC) Count 4.54 mill/uL (4.20-5.40); White Blood Cell (WBC) Count 11.1 thou/uL (4.8-10.8)
[2020-07-23 18:54] LABS: ALT (SGPT) 10 U/L (8-55); AST (SGOT) 14 U/L (5-34); Albumin 4.1 g/dL (3.5-5.0); Alkaline Phosphatase 72 U/L (40-110); Anion Gap 12 mmol/L (10-20); BUN (Urea Nitrogen) 9 mg/dL (7.0-18.7); Bilirubin, Total 0.3 mg/dL (0.2-1.2); Calc. Creatinine Clearance 0 mL/min (70-130); Calcium 9.4 mg/dL (7.8-10.44); Carbon Dioxide 26 mmol/L (22-29); Chloride 104 mmol/L (98-107); Globulin 3.3 g/dL (2.4-3.5); Glucose 82 mg/dL (70-105); Potassium 3.5 mmol/L (3.5-5.1); Protein, Total 7.4 g/dL (6.0-8.3); Sodium 138 mmol/L (136-145)
== END 2020-07-23 19:42 | disposition home or self-care (01) ==
LOC: ERS 17:46
DX: R10.31 Right lower quadrant pain (principal)
CPT/HCPCS: 36415; 74177; 80053; 81003; 81025; 85025; Q9967

== ENCOUNTER 2024-10-09 02:16 | Emergency (ER) | payer OTHER, SELFPAY ==
[2024-10-09] MEDS ORDERED: Acetaminophen 325 MG TAB ONE (03:10)
== END 2024-10-09 04:23 | disposition home or self-care (01) ==
LOC: ERS 02:16
DX: S63.501A Unspecified sprain of right wrist, initial encounter (principal); V80.010A Animal-rider injured by fall from or being thrown from horse in noncollision accident, initial encounter; Y93.52 Activity, horseback riding
CPT/HCPCS: 29125; 96374; J3010

== ENCOUNTER 2024-10-15 21:02 | Emergency (ER) | payer SELFPAY ==
[2024-10-15 21:29] LABS: #Basophils 0.07 10x3/uL (0.0-0.2); #Eosinophils 0.10 10x3/uL (0.0-0.7); #Monocytes 0.67 10x3/uL (0.11-0.59); #Neutrophils 5.68 10x3/uL (1.40-6.50); %Basophils 0.7 % (0.0-1.0); %Eosinophils 1.0 % (0.0-10.0); %Lymphocytes 34.0 % (21.0-51.0); %Monocytes 6.8 % (0.0-10.0); %Neutrophils 57.2 % (42.0-75.0); Hematocrit 39.7 % (36.0-47.0); Hemoglobin 13.3 g/dL (12.0-16.0); Mean Corpuscular Hemoglobin 30.0 pg (27.0-31.0); Mean Corpuscular Volume 89.4 fL (78.0-98.0); Platelet Count 353 10x3/uL (130-400); Red Blood Cell (RBC) Count 4.44 mill/uL (4.20-5.40); White Blood Cell (WBC) Count 9.92 10x3/uL (4.8-10.8)
[2024-10-15 21:38] LABS: BHCG - Serum Negative (NEGATIVE); Pregs Control Background? CLEAR/WHITE (CLR/WHITE); Pregs Control Bar Appear? YES (CONTROL BAR)
[2024-10-15 21:46] LABS: ALT (SGPT) 20 U/L (Less than 34); AST (SGOT) 32 U/L (11-34); Albumin 3.6 g/dL (3.1-4.5); Alkaline Phosphatase 53 U/L (40-110); Anion Gap 15 mmol/L (10-20); BUN (Urea Nitrogen) 11 mg/dL (7.0-18.7); Bilirubin, Total 0.3 mg/dL (0.3-1.2); Calc. Creatinine Clearance 0 mL/min (70-130); Calcium 9.2 mg/dL (7.8-10.44); Carbon Dioxide 21 mmol/L (22-29); Chloride 106 mmol/L (98-107); Globulin 3.8 g/dL (2.4-3.5); Glucose 93 mg/dL (70-105); Potassium 4.0 mmol/L (3.5-5.1); Sodium 138 mmol/L (136-145)
[2024-10-15] MEDS ORDERED: diphenhydrAMINE 50 MG/ML VIAL ONE (22:11)
[2024-10-15] MEDS ORDERED: Metoclopramide HCl 10 MG (2 mL) VIAL ONE (22:11)
[2024-10-15] MEDS ORDERED: Dexamethasone 10 MG/ML VIAL ONE (22:11)
== END 2024-10-16 00:15 | disposition home or self-care (01) ==
LOC: ERS 21:02
DX: R51.9 Headache, unspecified (principal); I10 Essential (primary) hypertension
CPT/HCPCS: 36415; 70450; 80053; 84484; 84703; 85025; 93005; 96365; 96366; 96375; J1100; J1200; J2270; J2765

== ENCOUNTER 2024-10-18 12:16 | Outpatient (CLI) | payer OTHER | END 2024-10-18 12:17 | disposition home or self-care (01) | LOC: SCSRAD 12:16 | PROVIDERS: ATTEND Chiropractor | DX: M54.50 Low back pain, unspecified (principal); M53.86 Other specified dorsopathies, lumbar region; M79.10 Myalgia, unspecified site; M47.816 Spondylosis without myelopathy or radiculopathy, lumbar region | CPT/HCPCS: 72110 ==